=== PATIENT | female | born 1970 | race Caucasian/White ===

== ENCOUNTER 2022-07-22 11:09 | Emergency (ER) | payer OTHER | END 2022-07-22 17:30 | disposition home or self-care (01) | LOC: FER 11:09 | DX: S96.912A Strain of unspecified muscle and tendon at ankle and foot level, left foot, initial encounter (principal); X50.1XXA Overexertion from prolonged static or awkward postures, initial encounter; Y92.89 Other specified places as the place of occurrence of the external cause; Y99.0 Civilian activity done for income or pay | CPT/HCPCS: 73620 ==